=== PATIENT | female | born 1945 | race Caucasian/White ===

== ENCOUNTER → 2018-02-27 | Outpatient (CLI) | payer MEDICARE, BC ==
[~2018-02-27] MED LIST: AMLODIPINE BESY10 MG PO; ASPIR 8181 MG PO; BISOPROLOL-HCT1 EAC1 PO; CALCIUM MAGNES1 EAC1 PO; CALCIUM600 MG PO; CO Q-10300 MG PO; COPAXONE20 MG/KIT INJ; COQ-10100 MG PO; CYCLOBENZAPRINE10 MG PO; CYCLOBENZAPRINE5 MG PO; DEXILANT60 MG PO; FENOFIBRATE PO; FENOFIBRATE67 MG PO; FISH OIL 1,0001 EAC2 PO; FISH OIL 1,2001 EAC1 PO; LACTATED RINGER'S 1,000 ML ONE; LEVOTHYROXINE125 MCG PO; LEVOTHYROXINE50 MCG PO; LINZESS PO; LOSARTAN POTAS100 MG PO; MECLIZINE HCL12.5 MG PO; MIDAZOLAM HCL 2 MG/2 ML VIAL ONE; MULTI-VITAMIN1 EACH PO; MULTIVITAMINS1 EAC8 PO; NORVASC5 MG PO; OMEPRAZOLE40 MG PO; PROPOFOL IV EMULSION 10 MG/ML 20 ML VIAL ONE; RAMIPRIL10 MG PO; RESTASIS1 EACH OU; VITAMIN B-121000 MCG PO; VITAMIN D-32000 UNIT PO; VITAMIN D33000 UNIT PO
--- NOTE | 2018-02-27 18:58 | Diagnostic Imaging Report ---
TECHNIQUE: Magnetic resonance imaging of the RIGHT KNEE was performed WITHOUT injected contrast. HISTORY: Pain COMPARISON: None available. FINDINGS: LIGAMENTS AND TENDONS: ACL: Intact fibers with mild intrasubstance degeneration. PCL: Intact Collateral ligaments: Intact Iliotibial band: Unremarkable Popliteal tendon: Intact Extensor mechanism: Intact JOINT: Menisci: Medial: Minimal attenuation and fraying of the free margin and the tibial articular surface of the posterior horn, without a discrete well-defined tear. Lateral: Severe complex tearing and attenuation, most notably the anterior horn and adjacent body, peripheral extrusion of the meniscal remnants. Articular Cartilage: Medial Compartment: Full-thickness erosion of the weightbearing cartilage. Lateral Compartment: High-grade erosion and fibrillation involving the weight-bearing cartilage of the femoral condyle and tibial plateau. Patellofemoral Compartment: Low to intermediate grade erosion of the medial patellar facet. Joint Fluid: Small effusion and synovitis. BONES: No focal or infiltrative bone marrow replacing abnormality. No acute fracture. Marginal osteophytosis. Mild reactive subchondral bone marrow edema and subtle cystic changes adjacent to the lateral compartment. SOFT TISSUES: Minimal diffuse soft tissue edema. IMPRESSION: 1. Lateral compartment predominant tricompartmental degenerative changes, including degenerative tearing of the lateral meniscus much greater than the medial meniscus. 2. Reactive synovitis and small effusion. Signed by: Darian Hidalgo.O., M.M.M. on 02/27/2018 6:54 PM
--- NOTE | 2018-02-27 19:06 | Diagnostic Imaging Report ---
TECHNIQUE: Magnetic resonance imaging of the LEFT KNEE was performed WITHOUT injected contrast. Suboptimal [id number]-nb-[id number] ratio, which may be related to body habitus and/or motion artifact. HISTORY: Pain COMPARISON: None available. FINDINGS: LIGAMENTS AND TENDONS: ACL: Intact fibers, minimal intrasubstance degeneration. PCL: Intact Collateral ligaments: Intact Iliotibial band: Unremarkable Popliteal tendon: Intact Extensor mechanism: Intact JOINT: Menisci: Medial: Intact Lateral: Complex tearing and attenuation, most notably the body, with peripheral extrusion of the body remnants. Articular Cartilage: Medial Compartment: Intermediate erosion, full-thickness fissuring, and fibrillation involving the weight-bearing cartilage of the femoral condyle and tibial plateau. Lateral Compartment: Full-thickness erosion of the weightbearing cartilage, most notably posteriorly. Patellofemoral Compartment: Low to intermediate grade erosion and fibrillation. Joint Fluid: Synovitis, small nonspecific joint effusion, nondistended Weir's cyst. BONES: No focal or infiltrative bone marrow replacing abnormality. No acute fracture. Subchondral sclerosis and cystic changes adjacent to the lateral compartment. SOFT TISSUES: Otherwise, unremarkable. IMPRESSION: 1. Lateral compartment predominant tricompartmental degenerative changes, including degenerative tearing of the lateral meniscus. 2. Reactive synovitis with associated small joint effusion and a nondistended Weir's cyst. Signed by: Darian Hidalgo.O., M.M.M. on 02/27/2018 7:03 PM
== END ==
LOC: MRI 02-15 13:22
PROVIDERS: ATTEND Specialist
DX: S83.242A Other tear of medial meniscus, current injury, left knee, initial encounter (principal); S83.241A Other tear of medial meniscus, current injury, right knee, initial encounter
CPT/HCPCS: 73721 ×2; J2250; J7120

== ENCOUNTER → 2018-03-15 | Day surgery (SDC) | payer MEDICARE, BC ==
[2018-03-13 11:05] LABS: BASOPHILS % 0.4 % (0.0-1.0); EOSINOPHILS # (AUTO) 0.2 (0.0-0.4); EOSINOPHILS % 2.3 % (0.0-6.0); HEMATOCRIT 41.8 % (34.2-44.1); HEMOGLOBIN 13.9 g/dL (12.0-16.0); LYMPHOCYTES # (AUTO) 3.3 (1.0-3.2); LYMPHOCYTES % 40.1 % (18.0-39.1); MEAN CORPUSCULAR HEMOGLOBIN 29.6 pg (28-32); MEAN CORPUSCULAR HGB CONC 33.3 g/dL (31-35); MEAN CORPUSCULAR VOLUME 89.1 fL (81-99); MONOCYTES # (AUTO) 0.6 (0.2-0.8); MONOCYTES % 7.1 % (4.4-11.3); NEUTROPHILS # (AUTO) 4.1 (2.1-6.9); NEUTROPHILS % 49.9 % (38.7-80.0); PLATELET COUNT 356 x10e3/uL (140-360); RED BLOOD COUNT 4.69 x10e6/uL (3.6-5.1); RED CELL DISTRIBUTION WIDTH 13.2 % (11.7-14.4)
[2018-03-13 11:19] LABS: ANION GAP 13.6 mmol/L (8-16); BLOOD UREA NITROGEN 22 mg/dL (7-26); BUN/CREATININE RATIO 27 (6-25); CALCIUM 9.7 mg/dL (8.4-10.2); CARBON DIOXIDE 28 mmol/L (22-29); CHLORIDE 103 mmol/L (98-107); CREATININE, SERUM 0.83 mg/dL (0.57-1.11); EST GLOMERULAR FILTRATION RATE > 60 ML/MIN (60-); GLUCOSE 123 mg/dL (74-118); POTASSIUM 3.6 mmol/L (3.5-5.1); SODIUM 141 mmol/L (136-145)
--- NOTE | 2018-03-13 11:46 | Diagnostic Imaging Report ---
PROCEDURE:CHEST 2 VIEWS TECHNIQUE:PA and lateral chest totaling 3 radiographs INDICATION:Preoperative evaluation for knee surgery COMPARISON:Patients [facility], DX, CHEST 2 VIEWS, 05/09/2017, 17:01. FINDINGS: The lungs are clear and symmetrically inflated. Calcified left upper lobe granuloma. Relative paucity of interstitial markings in the left upper lung zone. Mild increased AP chest diameter with associated pectus excavatum. Normal heart size. Intact skeleton. CONCLUSION: 1. Suspected emphysema. 2. Pectus excavatum. 3. No acute abnormality. Dictated by: Guero Levy M.D. on 03/13/2018 at 11:50 Electronically approved by: Guero Levy M.D. on 03/13/2018 at 11:50
[~2018-03-15] MED LIST changes: +BUPIVACAINE 0.5%/EPI 30 ML SDV INJ ONE; +CEFAZOLIN SOD 2 GM/D5W 50ML 50 ML IV ONE; +DEXAMETHASONE SOD PHOS INJ 4 MG/ML VIAL ONE; +EPHEDRINE SULFATE INJ 50 MG/10 ML SYR ONE; +FENTANYL CITRATE/PF 100MCG/2 ML INJ ONE; +KETOROLAC TROMETHAMINE 30 MG/ML VIAL ONE; -LACTATED RINGER'S 1,000 ML ONE; +LIDOCAINE HCL 2% LOCAL INJ 5 ML SDV VIAL INJ ONE; +METOCLOPRAMIDE HCL 10 MG/2ML VIAL ONE; +ONDANSETRON HCL INJ 2 MG/ML VIAL ONE; +PREMARIN0.625 MG PO; +SEVOFLURANE INHAL SOLN 250 ML PEN BTL ONE
--- NOTE | 2018-03-18 16:39 | Operative Report ---
DATE OF PROCEDURE: March 15, 2018 PREOPERATIVE DIAGNOSES 1. Right knee lateral meniscus tear. 2. 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 POSTOPERATIVE DIAGNOSES 1. Right knee lateral meniscus tear. 2. 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 OPERATIONS/PROCEDURES PERFORMED 1. Patient underwent right knee examination under anesthesia. 2. Right knee arthroscopy. 3. Right knee partial lateral meniscectomy. 4. Right knee chondroplasty of the patella, the trochlea, the medial femoral condyle and medial tibial plateau, the lateral femoral condyle and lateral tibial plateau. CLINICAL PHARMACY SPECIALIST: None. ANESTHESIA: General endotracheal intubation anesthesia. IV FLUIDS: Per the anesthesia record. BRIEF DESCRIPTION OF OPERATIVE PROCEDURE: Ms. Bailey was taken to the operating room and placed in supine position on operating table. Following induction of general anesthesia as well as endotracheal intubation, the patient's right lower extremity was examined under anesthesia. She was found to have a mild effusion within the knee joint, but an otherwise ligamentously stable knee. The patient's lower extremity was prepped and draped in standard surgical fashion. A 2-portal technique was used to provide this patient arthroscopic evaluation of the knee joint. Examination of the suprapatellar pouch and medial and lateral gutters found no evidence of loose bodies. There was; however, evidence of chondromalacia of the patella and trochlear surfaces. Scope was advanced into the medial compartment and examination of the medial compartment demonstrated chondromalacia of the articulating surfaces. A chondroplasty of the medial femoral condyle and medial tibial plateau was performed at this time. Scope was then advanced into the intercondylar notch and anterior cruciate ligament was identified and found to be intact. Scope was advanced in lateral compartment. Examination of the lateral compartment demonstrated a torn meniscus. There was also chondromalacia of articulating surfaces. A combination of biting forceps and a motorized shaver was used to resect the torn portion of the meniscus. Chondroplasties of the lateral femoral condyle and lateral tibial plateau were performed at this time. Scope was then advanced in the suprapatellar pouch and chondroplasties of the patella and trochlea were performed. The knee was deflated of its sterile normal saline. Each of the portal sites were closed using 4-0 nylon suture. The portal sites as well as the knee itself were then injected with 0.5% Marcaine with epinephrine. Sterile dressings were applied. Patient was then awakened and taken to postanesthesia care unit in stable condition. Job#: [id number] MARIA ELENA
== END | disposition home or self-care (01) ==
LOC: OR 07:11
PROVIDERS: ATTEND Specialist
DX: S83.261A Peripheral tear of lateral meniscus, current injury, right knee, initial encounter (principal); S83.221A Peripheral tear of medial meniscus, current injury, right knee, initial encounter; M22.41 Chondromalacia patellae, right knee; M17.11 Unilateral primary osteoarthritis, right knee; S83.282A Other tear of lateral meniscus, current injury, left knee, initial encounter; G35 Multiple sclerosis; I45.10 Unspecified right bundle-branch block; E03.9 Hypothyroidism, unspecified; I10 Essential (primary) hypertension; E78.5 Hyperlipidemia, unspecified; I25.10 Atherosclerotic heart disease of native coronary artery without angina pectoris; I34.1 Nonrheumatic mitral (valve) prolapse; K21.9 Gastro-esophageal reflux disease without esophagitis; X58.XXXA Exposure to other specified factors, initial encounter; Z01.810 Encounter for preprocedural cardiovascular examination; Z01.812 Encounter for preprocedural laboratory examination; Z01.818 Encounter for other preprocedural examination; Z79.82 Long term (current) use of aspirin; Z68.33 Body mass index [BMI] 33.0-33.9, adult
CPT/HCPCS: 29881; 36415; 71046; 80048; 85025; 93005; J1100; J1885; J2001; J2250; J2405; J2765

== ENCOUNTER → 2019-04-04 | Day surgery (SDC) | payer MEDICARE, BC ==
--- NOTE | 2019-04-02 11:34 | Diagnostic Imaging Report ---
EXAMINATION: CHEST 2 VIEWS INDICATION: Preoperative COMPARISON: Chest radiograph of 03/13/2018 FINDINGS: TUBES and LINES: None. LUNGS: The lung volumes are normal. No focal consolidation or pulmonary edema. Small bilateral calcified granulomas, unchanged from 03/13/2018. PLEURA: Blunting of the right anterior costophrenic angle, possibly representing a small amount of pleural fluid versus small hernia. HEART AND MEDIASTINUM: The cardiomediastinal silhouette is normal in size and contour. BONES AND SOFT TISSUES: No acute fracture or dislocation. UPPER ABDOMEN: No free air under the diaphragm. IMPRESSION: No focal pneumonia or pulmonary edema. Signed by: Ponce Rivera MD on 04/02/2019 11:31 AM
[~2019-04-04] MED LIST changes: +ACETAMINOPHEN 1000 MG/100 ML 100 ML IV ONE; +ACETAMINOPHEN 1000 MG/100 ML IV ONE; -BUPIVACAINE 0.5%/EPI 30 ML SDV INJ ONE; +BUPIVACAINE HCL 0.5% INJ 30 ML VIAL INJ ONE; +CEFAZOLIN SOD 1 GM/NS 50ML 100 ML IV ONE; -CEFAZOLIN SOD 2 GM/D5W 50ML 50 ML IV ONE; +CRANBERRY200 MG PO; -EPHEDRINE SULFATE INJ 50 MG/10 ML SYR ONE; -KETOROLAC TROMETHAMINE 30 MG/ML VIAL ONE; -MIDAZOLAM HCL 2 MG/2 ML VIAL ONE; +MYRBETRIQ25 MG PO; -ONDANSETRON HCL INJ 2 MG/ML VIAL ONE; +ONDANSETRON HCL INJ 2MG/ML 2ML 2 MG/ML VIAL ONE; +PHENYLEPHRINE HCL 1% 10 MG/ML VIAL ONE; +SODIUM CHLORIDE 0.9% 100 ML ONE
--- OUTSIDE RECORDS SUMMARY | 2019-04-04 06:29 | XMS REPORT | Clinical Summary ---
Author Author [facility] Organization [facility] Address Unknown Phone Unavailable Care Team Providers Care Outreach Rep Name Role Phone Bridgette Saunders MD PCP Allergies No Known Allergies Medications End Date Status Medication Sig Dispensed Refills Start Date Active bisoprolol-hydrochlorothi Take 3 3 azide (ZIAC) 5-6.25 mg tablets by 6 per tablet mouth once daily. Active fenofibrate micronized 1 capsule 0 (LOFIBRA) 67 MG capsule daily. 6 Active levothyroxine (SYNTHROID, 1 tablet 0 LEVOXYL) 125 mcg tablet daily. 7 Active losartan (COZAAR) 100 MG Take 100 mg 2 tablet by mouth once 7 daily. Active amLODIPine (NORVASC) 5 mg 1 tablet 0 tablet daily. 6 Active aspirin (ECOTRIN) 81 MG Take 81 mg by 0 enteric coated tablet mouth daily. Active cycloSPORINE (RESTASIS) 1 drop 2 0 0.05 % ophthalmic (two) times a emulsion day. Active cyanocobalamin (vitamin Take 1,000 0 B-12) 1000 MCG tablet mcg by mouth daily. Active cholecalciferol, vitamin Take 1 tablet 0 D3, 3,000 unit tablet by mouth daily. Active rlbtjuk-nqg-B Take 2 0 [id number] tablet tablets by mouth daily. Active multivitamin capsule Take 2 0 capsules by mouth daily. Active coenzyme Q10 (CO Q-10) Take 1 0 300 mg capsule capsule by mouth daily. Active omega-3 fatty Take 1 0 acids-vitamin E (FISH capsule by OIL) 1,000 mg capsule mouth daily. Active meclizine (ANTIVERT) 12.5 1 tablet as 0 mg tablet needed. 7 Active DEXILANT 60 mg capsule Take 1 3 capsule by 7 mouth once daily. Active PREMARIN 0.625 mg/gram 1 application 1 vaginal cream 2 (two) times 8 a week. Active nitrofurantoin, 1 capsule as 0 macrocrystal-monohydrate, needed. 8 (MACROBID) 100 MG capsule Active omeprazole (PriLOSEC) 40 Take 40 mg by 0 MG capsule mouth daily. Active cyclobenzaprine TAKE ONE 60 tablet 3 (FLEXERIL) 10 mg tablet TABLET BY 9 MOUTH TWO TIMES A DAY NEEDED FOR LEG CRAMPS Active COPAXONE 40 mg/mL syringe Inject 1ml 12 Syringe 0 (40mg) 9 subcutaneousl y three times a week. 11/24/2018 Discontinued COPAXONE 40 mg/mL syringe Inject 1ml 12 Syringe 0 (40mg) 8 subcutaneousl y three times a week. 09/15/2018 Discontinued cyclobenzaprine Take 1 by 60 tablet 5 (FLEXERIL) 10 mg tablet mouth twice a 8 day as needed for leg cramps 03/02/2019 Discontinued cyclobenzaprine TAKE ONE 60 tablet 4 (FLEXERIL) 10 mg tablet TABLET BY 8 MOUTH TWO TIMES A DAY NEEDED FOR LEG CRAMPS 01/09/2019 Discontinued COPAXONE 40 mg/mL syringe Inject 1ml 12 Syringe 1 (40mg) 9 subcutaneousl y three times a week. 03/05/2019 Discontinued COPAXONE 40 mg/mL syringe Inject 1ml 12 Syringe 1 (40mg) 9 subcutaneousl y three times a week. Active Problems Problem Noted Date Numbness of left hand 11/29/2018 Degenerative tear of lateral meniscus of left knee 03/07/2018 Degenerative tear of lateral meniscus of right knee 03/07/2018 Lumbar stenosis 06/01/2017 Lumbar radiculopathy 06/01/2017 Weakness of both lower extremities 04/19/2017 Idiopathic peripheral neuropathy 04/19/2017 Motion sickness 04/19/2017 Multiple sclerosis 10/25/2016 Sleep related leg cramps 10/25/2016 Constipation 10/25/2016 Memory loss 10/25/2016 Encounters Care Team Description Date Type Specialty Rosy Padilla MD 03/28/2019 Telephone Neurology Rosy Padilla MD Multiple sclerosis (HCC) (Primary Dx) 03/05/2019 Telephone Neurology Rosy Padilla MD 03/05/2019 Refill Neurology Rosy Padilla MD 03/02/2019 Refill Neurology Rosy Padilla MD 01/10/2019 Telephone Neurology Rosy Padilla MD 01/09/2019 Refill Neurology Rosy Padilla MD Multiple sclerosis (HCC) (Primary Dx); Spinal stenosis of lumbar region, unspecified whether neurogenic claudication present; Lumbar radiculopathy; Degenerative tear of lateral meniscus of left knee; Idiopathic peripheral neuropathy; Numbness of left hand 11/29/2018 Office Visit Neurology Rosy Padilla MD 11/24/2018 Refill Neurology Rosy Padilla MD 09/15/2018 Refill Neurology after 04/03/2018 Family History Medical History Relation Name Comments Diabetes Father Heart disease Father Hypertension Father Heart disease Mother Hypertension Mother Migraines Mother Relation Name Status Comments Father (Age 87) Mother (Age 70) Social History Date Tobacco Use Types Packs/Day Years Used Never Smoker Smokeless Tobacco: Never Used Alcohol Use Drinks/Week oz/Week Comments No Sex Assigned at Date Recorded Not on file Industry Job Start Date Occupation Not on file Not on file Not on file Travel End Travel History Travel Start No recent travel history available. Last Filed Vital Signs Time Taken Vital Sign Reading 11/29/2018 3:10 PM PSYCHIATRIC CLINICIAN Blood Pressure 153/74 11/29/2018 3:10 PM PSYCHIATRIC CLINICIAN Pulse 59 - Temperature - - Respiratory Rate - - Oxygen Saturation - - Inhaled Oxygen - Concentration 11/29/2018 3:10 PM PSYCHIATRIC CLINICIAN Weight 88.9 kg (196 lb) 11/29/2018 3:10 PM PSYCHIATRIC CLINICIAN Height 162.6 cm (5' 4") 11/29/2018 3:10 PM PSYCHIATRIC CLINICIAN Body Mass Index 33.64 Plan of Treatment Care Team Description Date Type Specialty Rosy Padilla MD [address] [facility] [address] [place] [id number] 06/04/2019 Office Visit Neurology Health Maintenance Due Date Last Done Comments BREAST CANCER SCREENING 1997 COLONOSCOPY SCREENING 1997 SHINGLES VACCINES (#1) 1997 65+ PNEUMOCOCCAL VACCINE 01/18/2012 (1 of 2 - PCV13) INFLUENZA VACCINE 04/26/2019 Procedures Comments Procedure Name Priority Date/Time Associated Diagnosis THYROID STIMULATING Routine 03/27/2019 Multiple sclerosis (HCC) HORMONE 7:23 AM CDT CBC WITH PLATELET AND Routine 03/27/2019 Multiple sclerosis (HCC) DIFFERENTIAL 7:23 AM CDT COMPREHENSIVE METABOLIC Routine 03/27/2019 Multiple sclerosis (HCC) PANEL 7:23 AM CDT after 04/03/2018 Results * CBC with platelet and differential (03/27/2019 7:23 AM CDT) WBC 7.9 3.8 - 10.8 [facility] [place] RBC 4.58 3.80 - 5.10 [facility] Million[facility] [place] HGB 13.5 11.7 - 15.5 g/dL [facility] [place] HCT 40.9 35.0 - 45.0 % [facility] [employer] [place] MCV 89.3 80.0 - 100.0 fL [facility] [place] MCH 29.5 27.0 - 33.0 pg [facility] [place] MCHC 33.0 32.0 - 36.0 g/dL [facility] [place] RDW 12.5 11.0 - 15.0 % [facility] [employer] [place] Platelet count 371 140 - 400 [facility] [place] MPV 10.4 7.5 - 12.5 fL [facility] [place] Neutrophils, 4,021 1,500 - 7,800 [facility] absolute cells/uL [facility] [place] Lymphocytes, 2,773 850 - 3,900 cells/uL [facility] [place] Monocytes, 743 200 - 950 cells/uL [facility] [place] Eosinophils, 300 15 - 500 cells/uL [facility] [place] Basophils, 63 0 - 200 cells/uL [facility] [place] Neutrophils 50.9 % [facility] [place] Lymphocytes 35.1 % [facility] [place] Monocytes 9.4 % [facility] [place] Eosinophils 3.8 % [facility] [place] Basophils + RC 0.8 % [facility] [place] Specimen Blood Narrative Performed At FASTING:YES [facility] FASTING: YES Resulting Agency Comment Performing Organization Information: Site ID: [id number] Name: [facility] Address: [address] [place] [phone] Director: Tamie Monique Performing Organization Address City/State/Zipcode Phone Number [facility] [address] [phone] * Thyroid stimulating hormone (03/27/2019 7:23 AM CDT) TSH 9.04 (H) 0.40 - 4.50 mIU/L [facility] [place] Specimen Blood Narrative Performed At FASTING:YES [facility] FASTING: YES Resulting Agency Comment Performing Organization Information: Site ID: [id number] Name: [facility] Address: [address] [place] [phone] Director: Tamie Monique Performing Organization Address City/State/Zipcode Phone Number [facility] [place] [address] [place], [place] [phone] * Comprehensive metabolic panel (03/27/2019 7:23 AM CDT) Glucose 89 65 - 99 mg/dL [facility] Comment: DIAGNOSTICS Fasting [place] reference interval BUN, whole 21 7 - 25 mg/dL [facility] blood [facility] [place] Creatinine 0.77 0.60 - 0.93 mg/dL [facility] Comment: DIAGNOSTICS For patients >49 years of age, [place] the reference limit for Creatinine is approximately 13% higher for people identified as -Danish. EGFR Non-Afr. 77 > OR=60 [facility] [place] mL/min/1.73m2 [facility] [place] EGFR 89 > OR=60 [facility] Danish mL/min/1.73m2 [facility] [place] BUN/creatinine NOT APPLICABLE 6 - 22 (calc) [facility] ratio [facility] [place] Sodium 143 135 - 146 mmol/L [facility] [place] Potassium 4.2 3.5 - 5.3 mmol/L [facility] [place] Chloride 103 98 - 110 mmol/L [facility] [place] CO2 29 20 - 32 mmol/L [facility] [place] Calcium 9.6 8.6 - 10.4 mg/dL [facility] [place] Protein 6.7 6.1 - 8.1 g/dL [facility] [place] Albumin, S 4.2 3.6 - 5.1 g/dL [facility] [place] Globulin, total 2.5 1.9 - 3.7 g/dL [facility] (calc) [facility] [place] Albumin/globuli 1.7 1.0 - 2.5 (calc) [facility] n ratio [facility] [place] Total bilirubin 0.4 0.2 - 1.2 mg/dL [facility] [place] Alkaline 49 33 - 130 U/L [facility] phosphatase [facility] [place] AST 18 10 - 35 U/L [facility] [place] ALT 16 6 - 29 U/L [facility] [place] Specimen Blood Narrative Performed At FASTING:YES [facility] FASTING: YES Resulting Agency Comment Performing Organization Information: Site ID: [id number] Name: [facility] Address: [address] [place] [address] Director: Tamie Monique Performing Organization Address City/State/Zipcode Phone Number [facility] [place] [address] [place], [place] [phone] after 04/03/2018 Insurance Type Payer Benefit Subscriber ID Effective Phone Address Plan / Dates Group Medicare MEDICARE MEDICARE xxxxxxxxxx 2011-P LEVINE, PART A AND resent [place] B PPO BCBS BCBS xxxxxxxxxxxx 2013-P CHOICE resent PPO/STELLA L EMPL PPO Advance Directives Patient has advance care planning documents on file. For more information, roby butt contact: Abner Landaverde [address] [place] [address]
[2019-04-04 11:55] VITALS: BP 118/61
--- NOTE | 2019-04-04 16:04 | Operative Report ---
DATE OF PROCEDURE: 04/04/2019 SURGEON: Edvin Chambers MD PREOPERATIVE DIAGNOSIS: Symptomatic hardware, left small finger metacarpal. POSTOPERATIVE DIAGNOSES: 1. Symptomatic hardware, left small finger metacarpal. 2. Partial tear of the left long extensor tendon to the small finger. OPERATIONS AND PROCEDURE PERFORMED: 1. The patient underwent removal of the failed left hand symptomatic hardware. 2. Debridement of the partial extensor tendon tear. 3. Repair of the partial extensor tendon tear. ASSEMBLYMAN OR WOMAN: JLUIS Figueroa. ANESTHESIA: General endotracheal intubation anesthesia. IV FLUIDS: As per the anesthesia record. COMPLICATIONS: None. BRIEF DESCRIPTION OF THE PATIENT'S OPERATIVE PROCEDURE: Ms. Baliey was taken to the operating room, placed in supine position on the operating table. Following induction of general anesthesia as well as endotracheal intubation, the patient's left upper extremity was examined under anesthesia. She was found to have an area of obvious swelling roughly at the level of the metacarpophalangeal joint of the small finger. X-rays taken in clinic has demonstrated failure of hardware with a prominent screw in this region. The patient's fracture was found to be healed. At the time of surgery fluoroscopic evaluation of the hand also demonstrated several screws backing out of the metacarpal. There was no evidence of a nonunion. The patient's upper extremity was prepped and draped in standard surgical fashion. The case was begun by reopening the patient's previous incision. The skin was incised in line with this incision. Blunt dissection was used to deepen the incision and this allowed for exposure of the extensor mechanism. The most distal screw had eroded through the extensor tendon just proximal to the sagittal bands. This screw was immediately removed. The extensor tendon was then mobilized and the remainder of the plate was isolated. The screws contained within the plate as well as two screws that were outside of the plate were all removed under direct visualization. The plate was then also removed. The wound was copiously irrigated. The extensor tendon was then debrided to healthy tissue. The partial extensor tendon tear was then repaired. The remaining soft tissues were closed in a multilayer fashion. Sterile dressings were applied as well as a well-padded splint and then the patient was awakened and taken to the postanesthesia care in stable condition. Supriya Amato was the assistant director of public works for this case and was necessary for both prepping and draping the patient as well as retraction of soft tissues that allowed this case to be successful. MD JOHN Amaro/EMILY /[id number]
== END | disposition home or self-care (01) ==
LOC: OR 06:26
PROVIDERS: ATTEND Specialist
DX: T84.418A Breakdown (mechanical) of other internal orthopedic devices, implants and grafts, initial encounter (principal); S56.418A Strain of extensor muscle, fascia and tendon of left little finger at forearm level, initial encounter; G35 Multiple sclerosis; I25.10 Atherosclerotic heart disease of native coronary artery without angina pectoris; I10 Essential (primary) hypertension; I45.10 Unspecified right bundle-branch block; R00.1 Bradycardia, unspecified; E03.9 Hypothyroidism, unspecified; K21.9 Gastro-esophageal reflux disease without esophagitis; K44.9 Diaphragmatic hernia without obstruction or gangrene; N20.0 Calculus of kidney; Y83.8 Other surgical procedures as the cause of abnormal reaction of the patient, or of later complication, without mention of misadventure at the time of the procedure; Z01.810 Encounter for preprocedural cardiovascular examination; Z01.818 Encounter for other preprocedural examination; Z79.82 Long term (current) use of aspirin; Z68.33 Body mass index [BMI] 33.0-33.9, adult; Z87.81 Personal history of (healed) traumatic fracture
CPT/HCPCS: 26320; 26418; 71046; 76000; 93005; J0131; J0690; J1100; J2001; J2370; J2405; J2704; J2765; J7050; J3010

== ENCOUNTER → 2022-07-26 | Outpatient (CLI) | payer MEDICARE, BC ==
[~2022-07-26] MED LIST changes: -ACETAMINOPHEN 1000 MG/100 ML 100 ML IV ONE; -ACETAMINOPHEN 1000 MG/100 ML IV ONE; -BUPIVACAINE HCL 0.5% INJ 30 ML VIAL INJ ONE; -CEFAZOLIN SOD 1 GM/NS 50ML 100 ML IV ONE; -DEXAMETHASONE SOD PHOS INJ 4 MG/ML VIAL ONE; -FENTANYL CITRATE/PF 100MCG/2 ML INJ ONE; -LIDOCAINE HCL 2% LOCAL INJ 5 ML SDV VIAL INJ ONE; -METOCLOPRAMIDE HCL 10 MG/2ML VIAL ONE; -ONDANSETRON HCL INJ 2MG/ML 2ML 2 MG/ML VIAL ONE; -PHENYLEPHRINE HCL 1% 10 MG/ML VIAL ONE; -PROPOFOL IV EMULSION 10 MG/ML 20 ML VIAL ONE; -SEVOFLURANE INHAL SOLN 250 ML PEN BTL ONE; -SODIUM CHLORIDE 0.9% 100 ML ONE
== END ==
LOC: MRI 08:05
PROVIDERS: ATTEND Specialist
DX: M25.512 Pain in left shoulder (principal); M25.511 Pain in right shoulder

== ENCOUNTER 2022-08-24 08:56 | Outpatient (RCR) | payer MEDICARE, BC | END 2022-08-25 | LOC: OT 08:56 | PROVIDERS: ATTEND Specialist | DX: M75.112 Incomplete rotator cuff tear or rupture of left shoulder, not specified as traumatic (principal); M19.012 Primary osteoarthritis, left shoulder; M25.512 Pain in left shoulder; M25.612 Stiffness of left shoulder, not elsewhere classified; R53.1 Weakness; G35 Multiple sclerosis ==

== ENCOUNTER 2022-11-28 16:56 | Emergency (ER) | payer MEDICARE, BC ==
[~2022-11-28] VITALS: Ht 162.6 cm; Wt 84.4 kg
[2022-11-28 17:57] VITALS: BP 138/77
[2022-12-03] MEDS ORDERED: HYDROCHLOROTHIA25 MG PO (14:46)
[2022-12-03] MEDS ORDERED: OXYBUTYNIN CHLOR5 MG PO (14:46)
[2022-12-03] MEDS ORDERED: FLONASE ALLERG9.9 ML INH (14:51)
[2022-12-03] MEDS ORDERED: BENZONATATE100 MG PO (14:51)
[2022-12-03] MEDS ORDERED: LEVOCETIRIZINE D5 MG PO (14:51)
[2022-12-03] MEDS ORDERED: CEFDINIR300 MG PO (14:51)
[2022-12-03] MEDS ORDERED: OMEPRAZOLE40 MG PO (14:51)
[2022-12-03] MEDS ORDERED: CEPHALEXIN250 MG PO (14:51)
== END 2022-11-28 17:59 | disposition home or self-care (01) ==
LOC: ER 17:09
DX: R10.31 Right lower quadrant pain (principal); K40.90 Unilateral inguinal hernia, without obstruction or gangrene, not specified as recurrent; I10 Essential (primary) hypertension; K21.9 Gastro-esophageal reflux disease without esophagitis; G35 Multiple sclerosis
CPT/HCPCS: 99283

== ENCOUNTER → 2022-12-06 | Day surgery (SDC) | payer MEDICARE, BC ==
[~2022-12-06] MED LIST changes: +ACETAMINOPHEN 1000 MG/100 ML 100 ML IV ONE; +BENZONATATE100 MG PO; +BUPIVACAINE 0.25% 30ML SDV ONE; +CEFDINIR300 MG PO; +CEPHALEXIN250 MG PO; +DEXAMETHASONE SOD PHOS INJ 4 MG/ML SDV ONE; +EPHEDRINE SULFATE INJ 50 MG/ML VIAL ONE; +FENTANYL CITRATE/PF 100MCG/2 ML INJ ONE; +FLONASE ALLERG9.9 ML INH; +GLYCOPYRROLATE INJ 0.2 MG/ML VIAL ONE; +HYDROCHLOROTHIA25 MG PO; +HYDROCODONE/APAP 7.5MG-325MG 1 EA TAB ONE; +LEVOCETIRIZINE D5 MG PO; +LIDOCAINE 1% W/EPINEPHRINE 20 ML VIAL ONE; +LIDOCAINE HCL 2% LOCAL INJ 5 ML SDV VIAL INJ ONE; +NEOSTIGMINE 1 MG/ML 10ML VIAL ONE; +ONDANSETRON HCL INJ 2MG/ML 2ML 2 MG/ML VIAL ONE; +OXYBUTYNIN CHLOR5 MG PO; +POVIDONE IODINE 0.05% 0.05 % ML PO ONE; +PROPOFOL IV EMULSION 10 MG/ML 20 ML VIAL ONE; +ROCURONIUM BROMIDE 10 MG/ML 5ML VIAL IV ONE; +SEVOFLURANE INHAL SOLN 250 ML PEN BTL ONE
[2022-12-06 09:17] LABS: BASOPHILS # (AUTO) 0.1 (0.0-0.1); BASOPHILS % 0.8 % (0.0-1.0); EOSINOPHILS # (AUTO) 0.3 (0.0-0.4); EOSINOPHILS % 3.3 % (0.0-6.0); HEMATOCRIT 44.1 % (34.2-44.1); LYMPHOCYTES # (AUTO) 2.6 (1.0-3.2); LYMPHOCYTES % 28.6 % (18.0-39.1); MEAN CORPUSCULAR HEMOGLOBIN 29.9 pg (28-32); MEAN CORPUSCULAR HGB CONC 31.7 g/dL (31-35); MEAN CORPUSCULAR VOLUME 94.2 fL (81-99); MONOCYTES # (AUTO) 0.7 (0.2-0.8); MONOCYTES % 7.7 % (4.4-11.3); NEUTROPHILS # (AUTO) 5.3 (2.1-6.9); NEUTROPHILS % 59.4 % (38.7-80.0); PLATELET COUNT 394 x10e3/uL (140-360); RED BLOOD COUNT 4.68 x10e6/uL (3.6-5.1); RED CELL DISTRIBUTION WIDTH 12.6 % (11.7-14.4)
[2022-12-06 09:34] LABS: ANION GAP 15.6 mmol/L (8-16); CALCIUM 8.7 mg/dL (8.4-10.2); CREATININE, SERUM 0.85 mg/dL (0.57-1.11); POTASSIUM 4.6 mmol/L (3.5-5.1)
[2022-12-06 12:50] VITALS: BP 144/82
== END | disposition home or self-care (01) ==
LOC: OR 07:47
PROVIDERS: ATTEND Surgery
DX: K40.30 Unilateral inguinal hernia, with obstruction, without gangrene, not specified as recurrent (principal); I10 Essential (primary) hypertension; Z20.822 Contact with and (suspected) exposure to COVID-19; Z79.82 Long term (current) use of aspirin; Z79.899 Other long term (current) drug therapy
CPT/HCPCS: 0223U; 36415; 49507; 71046; 80048; 85025; 88302; 93005; C1781; J0131; J1100; J2001; J2405; J2704; J2710; J3010

== ENCOUNTER → 2024-06-11 | Day surgery (SDC) | payer MEDICARE, BC ==
[2024-06-06 14:15] LABS: BASOPHILS # (AUTO) 0.1 (0.0-0.1); BASOPHILS % 0.9 % (0.0-1.0); EOSINOPHILS # (AUTO) 0.2 (0.0-0.4); EOSINOPHILS % 2.6 % (0.0-6.0); HEMATOCRIT 43.5 % (34.2-44.1); LYMPHOCYTES # (AUTO) 3.2 (1.0-3.2); LYMPHOCYTES % 38.7 % (18.0-39.1); MEAN CORPUSCULAR HEMOGLOBIN 30.6 pg (28-32); MEAN CORPUSCULAR HGB CONC 32.2 g/dL (31-35); MONOCYTES # (AUTO) 0.6 (0.2-0.8); MONOCYTES % 7.6 % (4.4-11.3); NEUTROPHILS # (AUTO) 4.1 (2.1-6.9); PLATELET COUNT 401 x10e3/uL (140-360); RED BLOOD COUNT 4.58 x10e6/uL (3.6-5.1); RED CELL DISTRIBUTION WIDTH 13.2 % (11.7-14.4); WHITE BLOOD COUNT 8.21 x10e3/uL (4.8-10.8)
[2024-06-06 14:54] LABS: ANION GAP 16.7 mmol/L (8-16); CALCIUM 9.9 mg/dL (8.4-10.2); CREATININE, SERUM 0.92 mg/dL (0.57-1.11); POTASSIUM 3.7 mmol/L (3.5-5.1)
[~2024-06-11] MED LIST changes: -ACETAMINOPHEN 1000 MG/100 ML 100 ML IV ONE; +ACETAMINOPHEN 1000 MG/100 ML IV ONE; -BUPIVACAINE 0.25% 30ML SDV ONE; +CHOLECALCIFEROL PO; -EPHEDRINE SULFATE INJ 50 MG/ML VIAL ONE; +FAMOTIDINE 20 MG/2 ML VIAL IV ONE; -GLYCOPYRROLATE INJ 0.2 MG/ML VIAL ONE; -HYDROCODONE/APAP 7.5MG-325MG 1 EA TAB ONE; -LIDOCAINE 1% W/EPINEPHRINE 20 ML VIAL ONE; +MAG GLYCINATE100 MG PO; +METOCLOPRAMIDE HCL 10 MG/2ML VIAL ONE; -NEOSTIGMINE 1 MG/ML 10ML VIAL ONE; -POVIDONE IODINE 0.05% 0.05 % ML PO ONE; +PROBIOTIC250 MG PO; -ROCURONIUM BROMIDE 10 MG/ML 5ML VIAL IV ONE
[2024-06-11] MEDS: LACTATED RINGER'S 1,000 ML ONE (07:45)
[2024-06-11] MEDS: ACETAMINOPHEN/CODEINE 300MG - 30MG TAB ONE (11:08)
[2024-06-11 11:35] VITALS: BP 129/68; PULSE 67; RESP 16; O2SAT 100
== END | disposition home or self-care (01) ==
LOC: OR 07:27
PROVIDERS: ATTEND Specialist
DX: M65.311 Trigger thumb, right thumb (principal); G35 Multiple sclerosis; I10 Essential (primary) hypertension; Z01.810 Encounter for preprocedural cardiovascular examination; Z01.812 Encounter for preprocedural laboratory examination; Z01.818 Encounter for other preprocedural examination; Z79.82 Long term (current) use of aspirin; Z79.899 Other long term (current) drug therapy; Z68.31 Body mass index [BMI] 31.0-31.9, adult
CPT/HCPCS: 26055; 36415; 71046; 80048; 85025; 93005; J0131; J0690; J1100; J2001; J2405; J2704; J2765; J3010; J7121